=== PATIENT | female | born 1960 | race Caucasian/White ===

== ENCOUNTER 2020-11-20 10:18 | Emergency (ER) | payer MEDICARE, MEDICAID ==
[~2020-11-20] VITALS: Ht 160 cm; Wt 66.4 kg
[2020-11-20 10:43] VITALS: Ht 160 cm; Wt 66.4 kg
[2020-11-20] MEDS ORDERED: ABILIFY2 MG (10:46)
[2020-11-20] MEDS ORDERED: KLONOPIN0.5 MG (10:46)
[2020-11-20] MEDS ORDERED: TOPROL XL25 MG (10:46)
[2020-11-20] MEDS ORDERED: NORVASC2.5 MG (10:46)
[2020-11-20] MEDS ORDERED: LIPITOR10 MG (10:46)
[2020-11-20] MEDS ORDERED: TRELEGY ELLIPT1 EACH (10:47)
[2020-11-20] MEDS ORDERED: ALBUTEROL SULF8.5 GM (10:47)
[2020-11-20] MEDS ORDERED: COMBIVENT RESPIM4 GM (10:47)
[2020-11-20] MEDS ORDERED: GABAPENTIN100 MG (10:47)
[2020-11-20] MEDS ORDERED: COZAAR25 MG (10:47)
[2020-11-20] MEDS ORDERED: ULTRAM50 MG (10:48)
[2020-11-20] MEDS ORDERED: ZANAFLEX4 MG (10:48)
[2020-11-20] MEDS ORDERED: FUROSEMIDE10 MG/M1 (10:48)
[2020-11-20 11:22] LABS: CALC OSMOLALITY 279 mosm/kg (275-300); CALCIUM 9.4 mg/dL (8.5-10.1); CARBON DIOXIDE 29.7 mmol/L (21.0-32.0); CHLORIDE - SERUM 102 mmol/L (98-107); CREATININE - SERUM 1.1 mg/dL (0.6-1.3); GLUCOSE 104 mg/dL (74-106); POTASSIUM - SERUM 3.5 mmol/L (3.5-5.1); SODIUM 139 mmol/L (136-145); UREA NITROGEN 18 mg/dL (7-18); eGFR NON AFRICAN AMERICAN 53 mL/min (90-120)
[2020-11-20 11:28] LABS: HEMATOCRIT 39.7 % (36.0-48.0); HEMOGLOBIN 13.1 g/dL (12-16); LYMPHOCYTE ABS# 1.46 10x3/uL (1.18-3.74); MCV 84.8 fL (80.0-100.0); MEAN PLATELET VOLUME 9.8 fL (7.4-10.4); NEUTROPHIL ABS# 22.73 10x3/uL (1.56-6.13); PLATELET COUNT 361 10x3/uL (130-400); RBC 4.68 10x6/uL (4.00-5.40); RDW 14.8 % (11.5-14.5); WBC 25.7 10x3/uL (4.8-10.8)
[2020-11-20 11:39] LABS: APTT 23.1 SECONDS (22.8-39.4); INR 1.07 (0.85-1.17); PROTIME 12.9 SECONDS (11.6-15.0)
[2020-11-20 11:40] LABS: ALBUMIN 3.7 g/dL (3.4-5.0); ALKALINE PHOSPHATASE 162 U/L (30-120); ALT (SGPT) 26 U/L (10-68); BILIRUBIN - TOTAL 0.36 mg/dL (0.2-1.3); CKMB 2.3 U/L (0.0-3.6); CREATINE KINASE 59 UL (21-215); D-DIMER-QUANTITATIVE 0.68 ug/mLFEU (0.20-0.54); MAGNESIUM - SERUM 1.7 mg/dL (1.8-2.4); PRO BNP 234 pg/mL (0-125); PROTEIN - SERUM 8.1 g/dL (6.4-8.2); TROPONIN-I 0.044 ng/mL (0.000-0.060)
[2020-11-20] MEDS ORDERED: ABILIFY10 MG PO (12:16)
[2020-11-20] MEDS ORDERED: COMBIVENT RESPIM4 GM INH (12:16)
[2020-11-20] MEDS ORDERED: COZAAR25 MG PO (12:17)
[2020-11-20] MEDS ORDERED: LIPITOR40 MG PO (12:18)
[2020-11-20] MEDS ORDERED: ONFI10 MG PO (12:18)
[2020-11-20] MEDS ORDERED: FUROSEMIDE20 MG PO (12:18)
[2020-11-20] MEDS ORDERED: NEURONTIN 300300 MG PO (12:19)
[2020-11-20] MEDS ORDERED: NORVASC5 MG PO (12:19)
[2020-11-20] MEDS ORDERED: TRELEGY ELLIPT1 EACH INH (12:20)
[2020-11-20] MEDS ORDERED: TOPROL XL25 MG PO (12:20)
[2020-11-20] MEDS ORDERED: ULTRAM50 MG PO (12:21)
[2020-11-20] MEDS ORDERED: ZANAFLEX4 MG PO (12:22)
[2020-11-20] MEDS ORDERED: KLONOPIN0.5 MG PO (12:27)
[2020-11-20 12:52] LABS: BILIRUBIN NEGATIVE (NEGATIVE); KETONE NEGATIVE (NEGATIVE); NITRITE NEGATIVE (NEGATIVE); UROBILINOGEN NORMAL mg/dL (< 2)
[2020-11-20 15:38] LABS: AMYLASE - SERUM 39 U/L (25-115)
[2020-11-20 15:40] LABS: LIPASE 40 U/L (73-393)
[2020-11-20 16:25] LABS: EOSINOPHILS 1 % (0-7); LYMPHOCYTES 9 % (15-50); MONOCYTES 1 % (2-11); NEUTROPHILS 89 % (40-80); PLATELET ESTIMATE NORMAL
[2020-11-20] MEDS ORDERED: VOLTAREN75 MG PO (17:00)
[2020-11-20 17:38] VITALS: BP 148/103
== END 2020-11-20 17:38 | disposition home or self-care (01) ==
LOC: D.ER 10:18
PROVIDERS: Emergency Medicine
DX: R07.9 Chest pain, unspecified (principal); R93.89 Abnormal findings on diagnostic imaging of other specified body structures; D72.829 Elevated white blood cell count, unspecified; R06.02 Shortness of breath; E11.9 Type 2 diabetes mellitus without complications; I11.0 Hypertensive heart disease with heart failure; I50.9 Heart failure, unspecified; J44.9 Chronic obstructive pulmonary disease, unspecified; Z72.0 Tobacco use

== ENCOUNTER 2020-11-26 18:41 | Inpatient (IN) | payer MEDICARE, MEDICAID ==
[~2020-11-26] VITALS: Ht 160 cm; Wt 64.4 kg
--- NOTE | 2020-11-26 17:15 | NUR ---
REPORT RECEIVED, PT A&O, UP ON BEDSIDE. NO S/S OF DISTRESS OBSERVED. RR EVEN & UNLABORED ON RA. BED LOCKED AND LOWERED, CL IN REACH. ASSESSMENT COMPLETED AT THIS TIME. WILL CONT POC.
[2020-11-26 18:00] VITALS: BP 141/93
[~2020-11-26 18:41] MED LIST: ABILIFY10 MG PO; ABILIFY2 MG; ALBUTEROL SULF8.5 GM; COMBIVENT RESPIM4 GM; COMBIVENT RESPIM4 GM INH; COZAAR25 MG; COZAAR25 MG PO; FUROSEMIDE10 MG/M1; FUROSEMIDE20 MG PO; GABAPENTIN100 MG; KLONOPIN0.5 MG; KLONOPIN0.5 MG PO; LIPITOR10 MG; LIPITOR40 MG PO; NEURONTIN 300300 MG PO; NORVASC2.5 MG; NORVASC5 MG PO; ONFI10 MG PO; TOPROL XL25 MG; TOPROL XL25 MG PO; TRELEGY ELLIPT1 EACH; TRELEGY ELLIPT1 EACH INH; ULTRAM50 MG; ULTRAM50 MG PO; VOLTAREN75 MG PO; ZANAFLEX4 MG; ZANAFLEX4 MG PO
[2020-11-26 19:41] LABS: BASOPHILS 0.3 % (0-2); EOSINOPHILS 2.2 % (0-7); HEMATOCRIT 44.5 % (36.0-48.0); HEMOGLOBIN 14.9 g/dL (12-16); IMMATURE GRANULOCYTES 1.6 % (0-5); LYMPHOCYTE ABS# 4.14 10x3/uL (1.18-3.74); MCH 28.3 pg (26.0-34.0); MCHC 33.5 g/dL (31.0-37.0); MCV 84.6 fL (80.0-100.0); MEAN PLATELET VOLUME 10.1 fL (7.4-10.4); MONOCYTES 9.1 % (2-11); NEUTROPHIL ABS# 11.49 10x3/uL (1.56-6.13); NEUTROPHILS 63.8 % (40-80); PLATELET COUNT 274 10x3/uL (130-400); RBC 5.26 10x6/uL (4.00-5.40); RDW 15.3 % (11.5-14.5)
[2020-11-26 20:06] LABS: ALBUMIN 3.5 g/dL (3.4-5.0); ANION GAP 14.5 mmol/L (8-16); BILIRUBIN - TOTAL 0.49 mg/dL (0.2-1.3); CALCIUM 8.9 mg/dL (8.5-10.1); CARBON DIOXIDE 30.4 mmol/L (21.0-32.0); CREATININE - SERUM 1.3 mg/dL (0.6-1.3); POTASSIUM - SERUM 3.9 mmol/L (3.5-5.1); PROTEIN - SERUM 7.5 g/dL (6.4-8.2)
[2020-11-26] MEDS ORDERED: JANUVIA25 MG PO (20:57)
[2020-11-26] MEDS ORDERED: ALDACTONE25 MG PO (20:58)
[2020-11-26] MEDS ORDERED: PEPCID AC20 MG PO (20:59)
[2020-11-26] MEDS ORDERED: BREO ELLIPTA 11 EACH INH (21:00)
[2020-11-26] MEDS ORDERED: FLUTICASONE PRO16 GM NASAL (21:02)
[2020-11-26] MEDS ORDERED: INCRUSE ELLI62.5 MCG INH (21:06)
[2020-11-26 22:46] LABS: CKMB 2.9 U/L (0.0-3.6); CREATINE KINASE 131 UL (21-215); MAGNESIUM - SERUM 1.4 mg/dL (1.8-2.4); PRO BNP 66 pg/mL (0-125); TROPONIN-I 0.037 ng/mL (0.000-0.060)
[2020-11-26 22:57] LABS: APTT 24.9 SECONDS (22.8-39.4); INR 1.05 (0.85-1.17); PROTIME 12.7 SECONDS (11.6-15.0)
[2020-11-26 22:58] LABS: D-DIMER-QUANTITATIVE 0.59 ug/mLFEU (0.20-0.54)
[2020-11-26 23:32] VITALS: BP 149/94
[2020-11-27 00:54] VITALS: BP 141/93; BMI 25.2
[2020-11-27 07:30] VITALS: BP 134/94
[2020-11-27 07:31] LABS: BASOPHILS 0.1 % (0-2); EOSINOPHILS 1.8 % (0-7); HEMATOCRIT 41.2 % (36.0-48.0); HEMOGLOBIN 13.6 g/dL (12-16); IMMATURE GRANULOCYTES 1.4 % (0-5); LYMPHOCYTE ABS# 1.63 10x3/uL (1.18-3.74); LYMPHOCYTES 11.1 % (15-50); MCH 27.5 pg (26.0-34.0); MCV 83.2 fL (80.0-100.0); MEAN PLATELET VOLUME 9.7 fL (7.4-10.4); MONOCYTES 4.3 % (2-11); NEUTROPHILS 81.3 % (40-80); PLATELET COUNT 322 10x3/uL (130-400); RBC 4.95 10x6/uL (4.00-5.40); RDW 15.1 % (11.5-14.5); WBC 14.6 10x3/uL (4.8-10.8)
[2020-11-27 08:03] LABS: ALBUMIN 3.4 g/dL (3.4-5.0); ANION GAP 13.9 mmol/L (8-16); BILIRUBIN - TOTAL 0.71 mg/dL (0.2-1.3); CALCIUM 9.6 mg/dL (8.5-10.1); CARBON DIOXIDE 27.2 mmol/L (21.0-32.0); CREATININE - SERUM 1.1 mg/dL (0.6-1.3); MAGNESIUM - SERUM 1.6 mg/dL (1.8-2.4); POTASSIUM - SERUM 4.1 mmol/L (3.5-5.1); PROTEIN - SERUM 7.3 g/dL (6.4-8.2)
[2020-11-27 11:00] VITALS: BP 130/78
[2020-11-27 13:36] VITALS: Ht 160 cm; Wt 64.4 kg
[2020-11-27 18:11] LABS: BILIRUBIN NEGATIVE (NEGATIVE); KETONE NEGATIVE (NEGATIVE); NITRITE NEGATIVE (NEGATIVE); UROBILINOGEN NORMAL mg/dL (< 2)
--- NOTE | 2020-11-27 19:25 | NUR ---
REPORT RECEIVED, PT A&O, UP IN BED RECEIVING BREATHING TREATMENT. NO S/S OF DISTRESS OBSERVED. RR EVEN & UNLABORED ON 2L. BED LOCKED AND LOWERED, CL IN REACH. ASSESSMENT COMPLETE. WILL CONT POC.
[2020-11-27 20:00] VITALS: BP 109/74
[2020-11-28] VITALS: BP 118/83
[2020-11-28 04:00] VITALS: BP 112/74
[2020-11-28 05:54] LABS: BASOPHILS 0.1 % (0-2); EOSINOPHILS 0 % (0-7); HEMATOCRIT 38.3 % (36.0-48.0); HEMOGLOBIN 12.5 g/dL (12-16); LYMPHOCYTE ABS# 1.09 10x3/uL (1.18-3.74); LYMPHOCYTES 5.7 % (15-50); MCH 27.8 pg (26.0-34.0); MCHC 32.6 g/dL (31.0-37.0); MCV 85.1 fL (80.0-100.0); MEAN PLATELET VOLUME 10.2 fL (7.4-10.4); MONOCYTES 2.7 % (2-11); NEUTROPHIL ABS# 17.41 10x3/uL (1.56-6.13); NEUTROPHILS 90.5 % (40-80); PLATELET COUNT 350 10x3/uL (130-400); RDW 14.9 % (11.5-14.5)
[2020-11-28 06:31] LABS: ALBUMIN 2.9 g/dL (3.4-5.0); ANION GAP 14.1 mmol/L (8-16); BILIRUBIN - TOTAL 0.21 mg/dL (0.2-1.3); CALCIUM 9.6 mg/dL (8.5-10.1); CARBON DIOXIDE 26.7 mmol/L (21.0-32.0); CREATININE - SERUM 1.1 mg/dL (0.6-1.3); MAGNESIUM - SERUM 1.7 mg/dL (1.8-2.4); PROTEIN - SERUM 6.6 g/dL (6.4-8.2)
[2020-11-28 06:33] LABS: POTASSIUM - SERUM 4.8 mmol/L (3.5-5.1); WBC 19.2 10x3/uL (4.8-10.8)
[2020-11-28 08:35] VITALS: BP 135/76
[2020-11-28 11:46] VITALS: BP 130/80
[2020-11-28 16:25] VITALS: BP 110/68
--- NOTE | 2020-11-28 20:10 | NUR ---
REPORT RECEIVED, PT A&O, UP IN BED WATCHING TV. NO S/S OF DISTRESS OBSERVED. RR EVEN AND UNLABORED ON 2L. BED LOCKED AND LOWERED, CL IN REACH. ASSESSMENT COMPLETED AT THIS TIME. WILL CONT POC.
[2020-11-28 21:26] VITALS: BP 105/52
[2020-11-29] VITALS: BP 113/67
[2020-11-29 04:00] VITALS: BP 119/92
[2020-11-29 06:46] LABS: HEMATOCRIT 38.7 % (36.0-48.0); HEMOGLOBIN 12.7 g/dL (12-16); LYMPHOCYTE ABS# 1.12 10x3/uL (1.18-3.74); MCH 27.9 pg (26.0-34.0); MCHC 32.8 g/dL (31.0-37.0); MCV 85.1 fL (80.0-100.0); NEUTROPHIL ABS# 24.01 10x3/uL (1.56-6.13); PLATELET COUNT 335 10x3/uL (130-400); RBC 4.55 10x6/uL (4.00-5.40); RDW 15.2 % (11.5-14.5); WBC 26.6 10x3/uL (4.8-10.8)
[2020-11-29 07:00] VITALS: BP 131/84
[2020-11-29 07:05] LABS: ALBUMIN 3.1 g/dL (3.4-5.0); ANION GAP 14.8 mmol/L (8-16); BILIRUBIN - TOTAL 0.21 mg/dL (0.2-1.3); CALCIUM 9.3 mg/dL (8.5-10.1); CARBON DIOXIDE 25.3 mmol/L (21.0-32.0); MAGNESIUM - SERUM 1.8 mg/dL (1.8-2.4); POTASSIUM - SERUM 5.1 mmol/L (3.5-5.1); PROTEIN - SERUM 6.8 g/dL (6.4-8.2)
[2020-11-29 07:06] LABS: CREATININE - SERUM 1.4 mg/dL (0.6-1.3)
[2020-11-29 07:09] LABS: LYMPHOCYTES 5 % (15-50); NEUTROPHILS 95 % (40-80); PLATELET ESTIMATE NORMAL
[2020-11-29 11:30] VITALS: BP 126/73
[2020-11-29] MEDS ORDERED: PREDNISONE10 MG PO (12:29)
[2020-11-29] MEDS ORDERED: AZITHROMYCIN500 MG PO (12:30)
[2020-11-29] MEDS ORDERED: OMNICEF300 MG PO (12:30)
--- NOTE | 2020-11-29 12:36 | NUR ---
Nutrition Follow-up: Good appetite/PO intake. Denies N/V/C/D. Noted plans to d/c today. Diet: Diabetic PO intake: 100% this AM No new wt; last wt: 142# (11/27) Labs noted: BUN 35, Cre 1.4, GFR 41, Glu 155, Alb 3.1 Meds noted: Florajen, Januvia, Miralax, Lasix, Protonix, Zofran, Solumedrol, Humalog -RD will follow up within 7 days if pt still admitted.
--- NOTE | 2020-11-29 14:20 | NUR ---
DISCHARGE INSTRUCTIONS PROVIDED TO PATIENT. PATIENT VERBALIZED UNDERSTANDING. DISCHARGED VIA WHEELCHAIR TO VEHICLE WITH FAMILY.
== END 2020-11-29 14:24 | disposition home or self-care (01) | DRG 191 ==
LOC: D.M2 18:41
PROVIDERS: Family Medicine; ADMIT Family Medicine; ATTEND Family Medicine
DX: J44.1 Chronic obstructive pulmonary disease with (acute) exacerbation (principal); F17.213 Nicotine dependence, cigarettes, with withdrawal; J96.11 Chronic respiratory failure with hypoxia; E11.65 Type 2 diabetes mellitus with hyperglycemia; E11.40 Type 2 diabetes mellitus with diabetic neuropathy, unspecified; D72.829 Elevated white blood cell count, unspecified; I25.10 Atherosclerotic heart disease of native coronary artery without angina pectoris; I10 Essential (primary) hypertension; G40.909 Epilepsy, unspecified, not intractable, without status epilepticus; E78.5 Hyperlipidemia, unspecified; F31.9 Bipolar disorder, unspecified; F41.8 Other specified anxiety disorders